=== PATIENT | female | born 1975 | race Caucasian/White ===

== ENCOUNTER 2018-02-25 15:30 | Emergency (ER) | payer OTHER ==
[~2018-02-25] VITALS: Ht 162.6 cm; Wt 45.4 kg
[~2018-02-25 15:30] MED LIST: BUSPIRONE HCL10 MG; IBUPROFEN 800800 M1 PO; MIRTAZAPINE; NORCO 5-325 TA1 EACH PO; REMERON15 MG PO; VISTARIL 25 MG25 M1 PO; XANAX 0.5 MG0.5 MG PO
[2018-02-25] MEDS ORDERED: ZOLOFT25 MG PO (16:06)
[2018-02-25 16:07] LABS: ABSOLUTE BASOPHILS 0.1 thou/uL (0.0-0.2); ABSOLUTE EOSINOPHILS 0.2 thou/uL (0.0-0.7); ABSOLUTE LYMPHOCYTES 1.8 thou/uL (0.8-5.3); ABSOLUTE MONOCYTES 0.4 thou/uL (0.0-1.2); ABSOLUTE NEUTROPHILS 3.4 thou/uL (1.6-8.1); BASOPHILS 1.2 %; EOSINOPHILS 2.8 %; HEMATOCRIT 38.9 % (37.0-47.0); HEMOGLOBIN 12.6 gm/dL (12.0-15.0); LYMPHOCYTES 30.9 %; MCHC 32.5 g/dL (28.0-37.0); MCV 92.5 fL (80.0-100.0); MONOCYTES 7.2 %; MPV 8.2 fl. (7.2-11.1); NUCLEATED RBCS 0 /100WBC; PLATELET COUNT* 280 thou/uL (150-400); POLYS 57.9 %; RDW-CV 13.8 % (10.5-14.5); WBC 5.9 thou/uL (4.0-11.0)
[2018-02-25] MEDS ORDERED: HTN PO (16:07)
[2018-02-25 16:11] LABS: URINE BILIRUBIN NEGATIVE (Negative); URINE BLOOD NEGATIVE (Negative); URINE CLARITY CLEAR; URINE COLOR YELLOW; URINE GLUCOSE-RANDOM NEGATIVE (Negative); URINE KETONES NEGATIVE (Negative); URINE LEUKOCYTES-REFLEX NEGATIVE (Negative); URINE NITRITE-REFLEX NEGATIVE (Negative); URINE PROTEIN NEGATIVE (Negative); URINE SPECIFIC GRAVITY <= 1.005 (1.005-1.030); URINE UROBILINOGEN 0.2 E.U./dl (0.2-1.0)
[2018-02-25 16:19] LABS: AMP/METHAMP POSITIVE (Negative); BARBITURATES Negative (Negative); BENZODIAZEPINES Negative (Negative); COCAINE Negative (Negative); METHADONE Negative (Negative); OPIATES Negative (Negative); PCP Negative (Negative); THC Negative (Negative)
[2018-02-25 16:19] LABS: CALCIUM 8.7 mg/dL (8.5-10.1); CREATININE 0.6 mg/dL (0.6-1.3); POTASSIUM 3.9 mmol/L (3.5-5.1)
[2018-02-25 16:31] LABS: ALBUMIN 3.6 g/dL (3.4-5.0); TOTAL BILIRUBIN 0.2 mg/dL (<0.1-1.0); TOTAL PROTEIN 6.6 g/dL (6.4-8.2)
[2018-02-25 16:33] LABS: ACETAMINOPHEN < 2 ug/mL (10-30); ALCOHOL 42 mg/dL (<10); SALICYLATE < 2.8 mg/dL (2.8-20.0)
[2018-02-25 21:34] VITALS: BP 117/74
== END 2018-02-25 21:36 | disposition home or self-care (01) ==
LOC: M.ERS 15:30
PROVIDERS: Emergency Medicine Emergency Medical Services
DX: R45.851 Suicidal ideations (principal); F15.10 Other stimulant abuse, uncomplicated; I10 Essential (primary) hypertension; F41.9 Anxiety disorder, unspecified; F17.210 Nicotine dependence, cigarettes, uncomplicated

== ENCOUNTER 2018-11-14 14:13 | Emergency (ER) | payer OTHER ==
[~2018-11-14] VITALS: Ht 162.6 cm; Wt 44.5 kg
[~2018-11-14 14:13] MED LIST changes: +HTN PO; +ZOLOFT25 MG PO
[2018-11-14 14:17] VITALS: BP 138/111
[2018-11-14] MEDS ORDERED: XANAX1 MG PO (14:19)
[2018-11-14] MEDS ORDERED: PROPRANOLOL 1010 MG PO (14:20)
== END 2018-11-14 16:28 | disposition left against medical advice (07) ==
LOC: M.ERS 14:13
DX: Z53.21 Procedure and treatment not carried out due to patient leaving prior to being seen by health care provider (principal)